=== PATIENT | female | born 1935 | race Two or more races ===

== ENCOUNTER 2020-12-22 09:40 | Day surgery (SDC) | payer MEDICARE, MEDICAID ==
[~2020-12-22] VITALS: Ht 157.5 cm; Wt 60.2 kg
[2020-12-22 10:00] VITALS: BP_SYST 148; BP_SYST 151; BP_DIAS 70; BP_DIAS 80
[2020-12-22] MEDS ORDERED: DOCU-148 PO (10:14)
[2020-12-22] MEDS ORDERED: ASPI-1264 PO (10:14)
[2020-12-22] MEDS ORDERED: HYDR-3965 PO (10:14)
[2020-12-22] MEDS ORDERED: Tylenol PO (10:14)
[2020-12-22 10:35] VITALS: BP 151/80
[2020-12-22 10:45] VITALS: BP 141/71
[2020-12-22 11:00] VITALS: BP 132/73
[2020-12-22 11:15] VITALS: BP 127/77
[2020-12-22 11:30] VITALS: BP 128/79
== END 2020-12-22 11:45 | disposition home or self-care (01) ==
LOC: SSTAY O 09:40
PROVIDERS: ATTEND Radiology Vascular & Interventional Radiology
DX: J90 Pleural effusion, not elsewhere classified (principal); M19.90 Unspecified osteoarthritis, unspecified site; Z90.710 Acquired absence of both cervix and uterus; Z90.49 Acquired absence of other specified parts of digestive tract; Z79.899 Other long term (current) drug therapy
CPT/HCPCS: 32555

== ENCOUNTER 2021-03-27 08:24 | Outpatient (CLI) | payer MEDICARE, MEDICAID ==
[~2021-03-27 08:24] MED LIST: DOCU-148 PO; HYDR-3965 PO; IPRA3AMP9 NEB; PANT40TA54 PO; Tylenol PO
[2021-03-27] MEDS ORDERED: iohexol 300mg/ml 100ml inj. ONE (09:22)
[2021-03-27] MEDS ORDERED: iohexol 300 MG/1 ML 50ml polymer ONE (09:22)
== END 2021-03-27 23:59 | disposition home or self-care (01) ==
LOC: 64 CT 08:24
PROVIDERS: ATTEND Internal Medicine Hematology & Oncology
DX: S72.92XA Unspecified fracture of left femur, initial encounter for closed fracture (principal); C34.81 Malignant neoplasm of overlapping sites of right bronchus and lung; K42.9 Umbilical hernia without obstruction or gangrene; K57.30 Diverticulosis of large intestine without perforation or abscess without bleeding; R91.1 Solitary pulmonary nodule; J90 Pleural effusion, not elsewhere classified; E04.2 Nontoxic multinodular goiter; R91.8 Other nonspecific abnormal finding of lung field; X58.XXXA Exposure to other specified factors, initial encounter; Y93.89 Activity, other specified; Y92.89 Other specified places as the place of occurrence of the external cause; Y99.8 Other external cause status
CPT/HCPCS: 71260; 73700; 74177; Q9967

== ENCOUNTER 2021-10-01 18:31 | Emergency (ER) | payer MEDICARE, MEDICAID ==
[~2021-10-01] VITALS: Ht 165.1 cm; Wt 61.0 kg
[2021-10-01 18:59] LABS: BASOPHILS % (AUTO) 0.1 % (0-1); EOSINOPHILS # (AUTO) 0.1 X10'3 (0-0.9); EOSINOPHILS % (AUTO) 0.9 % (0-6); HEMATOCRIT 40.1 % (35.0-45.0); HEMOGLOBIN 13.5 g/dl (12.0-16.0); LYMPHOCYTES # (AUTO) 0.9 X10'3 (1.1-4.8); LYMPHOCYTES % (AUTO) 11.2 % (21-51); MEAN CORPUSCULAR HEMOGLOBIN 33.2 PG (27.0-31.0); MEAN CORPUSCULAR HGB CONC 33.8 g/dL (33.0-36.5); MEAN CORPUSCULAR VOLUME 98.4 FL (78-98); MEAN PLATELET VOLUME 7.7 FL (7.4-10.4); MONOCYTES # (AUTO) 0.1 X10'3 (0-0.9); MONOCYTES % (AUTO) 1.2 % (2-12); NEUTROPHILS # (AUTO) 6.6 X10'3 (1.8-7.7); NEUTROPHILS % (AUTO) 86.6 % (42-75); PLATELET COUNT 171 X10'3 (140-440); RED BLOOD COUNT 4.07 X10'6 (4.20-5.60); RED CELL DISTRIBUTION WIDTH 14.7 % (11.5-14.5); WHITE BLOOD COUNT 7.6 X10'3 (4.5-11.0)
[2021-10-01 19:23] LABS: ALANINE AMINOTRANSFERASE 32 U/L (12-78); ALBUMIN 3.1 G/DL (3.4-5.0); ALBUMIN/GLOBULIN RATIO 0.7 (1.1-1.5); ALKALINE PHOSPHATASE 150 IU/L (46-116); ANION GAP 14 (8-16); ASPARTATE AMINO TRANSFERASE 25 U/L (10-37); BILIRUBIN,TOTAL 0.7 MG/DL (0.1-1.0); BLOOD UREA NITROGEN 19 MG/DL (7-18); BUN/CREATININE RATIO 27.5 (6.6-38.0); CALCIUM 8.3 MG/DL (8.5-10.1); CHLORIDE 102 MMOL/L (99-107); CREATININE 0.69 MG/DL (0.40-0.90); GLUCOSE 113 MG/DL (70-104); SODIUM 140 MMOL/L (135-145); TOTAL CARBON DIOXIDE 23.9 MMOL/L (24-32); TOTAL PROTEIN 7.6 G/DL (6.4-8.2); eGFR 81 ML/MIN
--- NOTE | 2021-10-01 21:30 | NUR ---
pt presents to the ed with c/o sob, nausea and other symptoms; per family pt's symptoms started three months ago after receiving chemo therapy for lung cancer; the pt is hard of hearing and does not speak [place]. The pt denies fever/chills, sorethroat, cp, abd pain, or gu symptoms; she is a/o, nad, skin w/d.
[2021-10-01] MEDS ORDERED: ONDA4TAB12 PO (22:25)
[2021-10-01] MEDS ORDERED: HYDROcodone/acetaminophen 5mg/325mg tablet PO ONE (22:25)
[2021-10-01] MEDS ORDERED: ondansetron 4mg rapidly disintigrating tab PO ONE (22:25)
--- NOTE | 2021-10-01 22:32 | NUR ---
Rapid covid spec collected and sent
[2021-10-01 23:22] VITALS: BP 132/69
== END 2021-10-01 23:23 | disposition home or self-care (01) ==
LOC: ER 18:31
DX: R07.89 Other chest pain (principal); Z20.822 Contact with and (suspected) exposure to COVID-19; R11.2 Nausea with vomiting, unspecified; R51.9 Headache, unspecified; R05.3 Chronic cough; E03.9 Hypothyroidism, unspecified; R06.02 Shortness of breath; Z85.118 Personal history of other malignant neoplasm of bronchus and lung; Z79.899 Other long term (current) drug therapy
CPT/HCPCS: 36415; 71045; 80053; 83880; 84484; 85025; 87635; 93005; 99285; C9803